=== PATIENT | male | born 1960 | race Caucasian/White ===

== ENCOUNTER 2023-08-25 13:20 | Inpatient (IN) | payer MEDICAID, OTHER, SELFPAY ==
[~2023-08-25] VITALS: Ht 182.9 cm; Wt 77.3 kg
[2023-08-25] VITALS (25 sets, daily range): BP systolic 120–160; BP diastolic 59–96; TEMP 98.5–98.6; O2SAT 89–96
[2023-08-25 14:19] LABS: BASO # 0.1 10^3/uL (0.0-0.2); BASO % 1.3 % (0.0-1.0); EOS # 0.1 10^3/uL (0.0-0.5); EOS % 1.3 % (0.0-3.0); HEMATOCRIT 50.4 % (42.0-52.0); LYMPH # 2.1 10^3/uL (1.5-5.0); LYMPH % 20.4 % (24.0-44.0); MEAN CORPUSCULAR HEMOGLOBIN 28.9 pg (27.0-33.0); MEAN CORPUSCULAR HGB CONC 34.1 g/dl (32.0-36.5); MEAN CORPUSCULAR VOLUME 84.6 fl (80.0-96.0); MONO # 0.7 10^3/uL (0.0-0.8); MONO % 6.5 % (2.0-8.0); NEUTROPHILS # 7.3 10^3/uL (1.5-8.5); NEUTROPHILS % 70.2 % (36.0-66.0); PLATELET COUNT, AUTOMATED 325 10^3/uL (150-450); WHITE BLOOD COUNT 10.3 10^3/uL (4.0-10.0)
[2023-08-25 14:22] LABS: HEMOGLOBIN 17.2 g/dl (13.5-17.5); RED BLOOD COUNT 5.96 10^6/uL (4.30-6.10)
[2023-08-25 14:24] LABS: INR 1.05; PARTIAL THROMBOPLASTIN TIME 28.6 SECONDS (24.8-34.2); PROTHROMBIN TIME 13.4 SECONDS (12.5-14.5)
[2023-08-25] MEDS ORDERED: niCARdipine IV 40 MG in IV 1 EA IV SCH (14:30)
[2023-08-25 14:37] LABS: ETHYL ALCOHOL (ETHANOL) < 0.003 % (0.000-0.010)
[2023-08-25 14:38] LABS: CPK CREATINE PHOSPHOKINASE 87 U/L (46-171)
[2023-08-25 14:39] LABS: BLOOD UREA NITROGEN 21 MG/DL (9-23); CALCIUM LEVEL 9.7 MG/DL (8.3-10.6); CARBON DIOXIDE LEVEL 24 MMOL/L (20-31); CHLORIDE LEVEL 106 MMOL/L (98-107); CK-MB VALUE MASS 1.1 NG/ML (<3.6); CREATININE FOR GFR 1.09 MG/DL (0.70-1.30); GLOMERULAR FILTRATION RATE > 60.0 (>49); GLUCOSE, FASTING 107 MG/DL (74-106); MB/CK RELATIVE INDEX 1.26 (< OR =4); POTASSIUM SERUM 3.9 MMOL/L (3.5-5.1); SODIUM LEVEL 139 MMOL/L (136-145)
[2023-08-25] MEDS ORDERED: ISOVUE-370 76% 100ML VIAL As Ordered ONE (14:43)
[2023-08-25] MEDS: ASPIRIN 81MG CHEW TABLET PO ONE (14:59)
[2023-08-25] MEDS: niCARdipine IV 40 MG in IV 1 EA IV SCH ×2 (15:00→19:00)
[2023-08-25] MEDS ORDERED: HOME MED LIST COMPLETE! XX SCH (15:20)
[2023-08-25 16:59] LABS: ALBUMIN 4.7 G/DL (3.2-5.2); ALKALINE PHOSPHATASE 125 U/L (46-116); ALT/SGPT 17 U/L (7.0-40); AST/SGOT 12 U/L (<34); BILIRUBIN,DIRECT 0.3 MG/DL (<0.4); CHOLESTEROL LEVEL 188 MG/DL (<200); HDL CHOLESTEROL 44.7 MG/DL (>40); LDL CHOLESTEROL 122.5 MG/DL (<100); NON-HDL-C 143.3 MG/DL; TOTAL PROTEIN 7.8 G/DL (5.7-8.2); TRIGLYCERIDES LEVEL 104 MG/DL (<150)
[2023-08-25] MEDS: ENOXAPARIN 40MG/0.4ML SYRINGE (J1650 PER 10MG) SC SCH (17:16)
[2023-08-25] MEDS: CLOPIDOGREL 75 MG TAB PO SCH (17:16)
[2023-08-25 17:24] LABS: HEMOGLOBIN A1c 5.4 % (4.0-6.0)
[2023-08-25] MEDS: ATORVASTATIN 20 MG TAB PO SCH (21:15)
[2023-08-25] MEDS: amLODIPine 5 MG TAB PO SCH (21:15)
[2023-08-26] VITALS (31 sets, daily range): BP systolic 113–193; BP diastolic 66–102; TEMP 97.2–98.4; O2SAT 91–96
[2023-08-26 05:29] LABS: ALBUMIN 3.9 G/DL (3.2-5.2); ALKALINE PHOSPHATASE 106 U/L (46-116); ALT/SGPT 13 U/L (7.0-40); AST/SGOT 12 U/L (<34); BILIRUBIN,TOTAL 0.9 MG/DL (0.3-1.2); BLOOD UREA NITROGEN 19 MG/DL (9-23); CALCIUM LEVEL 8.9 MG/DL (8.3-10.6); CARBON DIOXIDE LEVEL 27 MMOL/L (20-31); CHLORIDE LEVEL 107 MMOL/L (98-107); CHOLESTEROL LEVEL 166 MG/DL (<200); CHOLESTEROL RISK RATIO 4.47 (<5); CREATININE FOR GFR 0.88 MG/DL (0.70-1.30); GLOMERULAR FILTRATION RATE > 60.0 (>49); GLUCOSE, FASTING 100 MG/DL (74-106); HDL CHOLESTEROL 37.1 MG/DL (>40); LDL CHOLESTEROL 101.1 MG/DL (<100); NON-HDL-C 128.9 MG/DL; POTASSIUM SERUM 3.7 MMOL/L (3.5-5.1); SODIUM LEVEL 140 MMOL/L (136-145); TOTAL PROTEIN 6.8 G/DL (5.7-8.2); TRIGLYCERIDES LEVEL 139 MG/DL (<150)
[2023-08-26] MEDS: ASPIRIN 81MG CHEW TABLET PO SCH (08:05)
[2023-08-26] MEDS: amLODIPine 5 MG TAB PO SCH (09:25)
[2023-08-26] MEDS: **hydrALAZINE HCL** 25 MG TAB PO PRN (09:26)
[2023-08-26] MEDS ORDERED: QUEtiapine FUMARATE 12.5 MG HALF-TAB PO ONE (12:55)
[2023-08-26] MEDS: LORazepam 2 MG TAB PO PRN (13:06)
[2023-08-26] MEDS: hydrALAZINE 20MG/ML 1ML VIAL IV SCH (17:17)
[2023-08-26] MEDS: METOPROLOL SUCC *XL* 25MG TAB (TopROL *XL*) PO SCH (20:05)
[2023-08-26] MEDS: ACETAMINOPHEN TAB 650MG DOSE (2X325MG) PO PRN (20:05)
[2023-08-26 22:43] LABS: FREE T4 0.97 NG/DL (0.89-1.76); THYROID STIMULATING HORMONE 0.964 uIU/ML (0.55-4.78)
[2023-08-27] VITALS (10 sets, daily range): BP systolic 146–182; BP diastolic 62–122; TEMP 97.2–97.9; O2SAT 95–96
[2023-08-27 05:26] LABS: BASO # 0.2 10^3/uL (0.0-0.2); BASO % 1.7 % (0.0-1.0); EOS # 0.4 10^3/uL (0.0-0.5); EOS % 3.6 % (0.0-3.0); HEMATOCRIT 50.8 % (42.0-52.0); HEMOGLOBIN 16.8 g/dl (13.5-17.5); LYMPH # 2.9 10^3/uL (1.5-5.0); LYMPH % 25.5 % (24.0-44.0); MEAN CORPUSCULAR HEMOGLOBIN 28.6 pg (27.0-33.0); MEAN CORPUSCULAR HGB CONC 33.1 g/dl (32.0-36.5); MEAN CORPUSCULAR VOLUME 86.4 fl (80.0-96.0); MONO # 0.8 10^3/uL (0.0-0.8); MONO % 7.2 % (2.0-8.0); NEUTROPHILS # 7.1 10^3/uL (1.5-8.5); NEUTROPHILS % 61.7 % (36.0-66.0); PLATELET COUNT, AUTOMATED 310 10^3/uL (150-450); RED BLOOD COUNT 5.88 10^6/uL (4.30-6.10); WHITE BLOOD COUNT 11.5 10^3/uL (4.0-10.0)
[2023-08-27 05:50] LABS: BLOOD UREA NITROGEN 18 MG/DL (9-23); CALCIUM LEVEL 9.1 MG/DL (8.3-10.6); CARBON DIOXIDE LEVEL 27 MMOL/L (20-31); CHLORIDE LEVEL 109 MMOL/L (98-107); CREATININE FOR GFR 0.96 MG/DL (0.70-1.30); GLOMERULAR FILTRATION RATE > 60.0 (>49); GLUCOSE, FASTING 91 MG/DL (74-106); POTASSIUM SERUM 4.1 MMOL/L (3.5-5.1); SODIUM LEVEL 142 MMOL/L (136-145)
[2023-08-27] MEDS: METOPROLOL SUCC *XL* 25MG TAB (TopROL *XL*) PO ONE (11:29)
[2023-08-27] MEDS: hydrALAZINE 20MG/ML 1ML VIAL IV PRN (16:10)
[2023-08-27] MEDS: LORazepam 2 MG/ML 1ML VIAL IV STA (16:10)
[2023-08-27] MEDS: METOPROLOL SUCC *XL* 25MG TAB (TopROL *XL*) PO SCH (20:56)
[2023-08-27] MEDS: INDOMETHACIN 25 MG CAP PO ONE (21:29)
[2023-08-28] VITALS (11 sets, daily range): BP systolic 133–172; BP diastolic 88–102; TEMP 97.4–98.7; O2SAT 95–98
[2023-08-28 06:37] LABS: BLOOD UREA NITROGEN 19 MG/DL (9-23); CALCIUM LEVEL 9.3 MG/DL (8.3-10.6); CARBON DIOXIDE LEVEL 25 MMOL/L (20-31); CHLORIDE LEVEL 108 MMOL/L (98-107); CREATININE FOR GFR 0.87 MG/DL (0.70-1.30); GLOMERULAR FILTRATION RATE > 60.0 (>49); GLUCOSE, FASTING 81 MG/DL (74-106); POTASSIUM SERUM 4.1 MMOL/L (3.5-5.1); SODIUM LEVEL 142 MMOL/L (136-145)
[2023-08-28 06:45] LABS: BASO # 0.1 10^3/uL (0.0-0.2); BASO % 1.5 % (0.0-1.0); EOS # 0.4 10^3/uL (0.0-0.5); EOS % 4.6 % (0.0-3.0); HEMATOCRIT 51.2 % (42.0-52.0); LYMPH # 2.2 10^3/uL (1.5-5.0); LYMPH % 22.8 % (24.0-44.0); MEAN CORPUSCULAR HEMOGLOBIN 28.5 pg (27.0-33.0); MEAN CORPUSCULAR HGB CONC 33.4 g/dl (32.0-36.5); MEAN CORPUSCULAR VOLUME 85.5 fl (80.0-96.0); MONO # 0.8 10^3/uL (0.0-0.8); NEUTROPHILS # 6.1 10^3/uL (1.5-8.5); NEUTROPHILS % 62.8 % (36.0-66.0); PLATELET COUNT, AUTOMATED 303 10^3/uL (150-450); RED BLOOD COUNT 5.99 10^6/uL (4.30-6.10); WHITE BLOOD COUNT 9.6 10^3/uL (4.0-10.0)
[2023-08-28 06:46] LABS: HEMOGLOBIN 17.1 g/dl (13.5-17.5)
[2023-08-29] VITALS (7 sets, daily range): BP systolic 128–220; BP diastolic 78–120; TEMP 97.4–97.9; O2SAT 93–96
[2023-08-29] MEDS: METOPROLOL SUCC (TopROL XL) 50MG **XL** TAB PO SCH (09:06)
[2023-08-29] MEDS: ACETAMINOPHEN TAB 650MG DOSE (2X325MG) PO PRN (14:29)
[2023-08-29] MEDS: LOSARTAN 50MG TABLET PO SCH (17:00)
[2023-08-29] MEDS ORDERED: hydrALAZINE 20MG/ML 1ML VIAL IV PRN (17:05)
[2023-08-30] VITALS (9 sets, daily range): BP systolic 124–146; BP diastolic 77–85; TEMP 97–98.2; O2SAT 93–99
[2023-08-30] MEDS: METOPROLOL SUCC *XL* 25MG TAB (TopROL *XL*) PO SCH (08:26)
[2023-08-30 13:48] LABS: CLOSTRIDIUM DIFFICILE PCR NEGATIVE (NEGATIVE)
[2023-08-31] VITALS (10 sets, daily range): BP systolic 131–176; BP diastolic 77–98; TEMP 97.7–98.6; O2SAT 94–99
[2023-09-01] VITALS (9 sets, daily range): BP systolic 124–176; BP diastolic 76–98; TEMP 98.1–98.8; O2SAT 94–97
[2023-09-01] MEDS: diphenhydrAMINE 50MG/ML VIAL IM ONE
[2023-09-01] MEDS: **hydrALAZINE** 10 MG TAB PO ONE (00:01)
[2023-09-01 00:42] LABS: ALBUMIN 4.4 G/DL (3.2-5.2); ALKALINE PHOSPHATASE 127 U/L (46-116); ALT/SGPT 36 U/L (7.0-40); AST/SGOT 25 U/L (<34); BILIRUBIN,TOTAL 0.9 MG/DL (0.3-1.2); BLOOD UREA NITROGEN 19 MG/DL (9-23); CALCIUM LEVEL 9.3 MG/DL (8.3-10.6); CARBON DIOXIDE LEVEL 24 MMOL/L (20-31); CHLORIDE LEVEL 109 MMOL/L (98-107); GLOMERULAR FILTRATION RATE > 60.0 (>49); GLUCOSE, FASTING 109 MG/DL (74-106); POTASSIUM SERUM 3.8 MMOL/L (3.5-5.1); SODIUM LEVEL 141 MMOL/L (136-145); TOTAL PROTEIN 7.1 G/DL (5.7-8.2)
[2023-09-02] VITALS (11 sets, daily range): BP systolic 114–150; BP diastolic 68–98; TEMP 97.2–99; O2SAT 91–98
[2023-09-02 08:00] LABS: HEMATOCRIT 49.3 % (42.0-52.0); HEMOGLOBIN 16.5 g/dl (13.5-17.5); MEAN CORPUSCULAR HEMOGLOBIN 28.4 pg (27.0-33.0); MEAN CORPUSCULAR HGB CONC 33.5 g/dl (32.0-36.5); PLATELET COUNT, AUTOMATED 320 10^3/uL (150-450); WHITE BLOOD COUNT 14.3 10^3/uL (4.0-10.0)
[2023-09-02] MEDS: SERTRALINE HCL 50 MG TAB PO SCH (12:32)
[2023-09-03] VITALS (10 sets, daily range): BP systolic 129–150; BP diastolic 79–90; TEMP 97.3–98.4; O2SAT 93–95
[2023-09-03 08:58] LABS: HEMATOCRIT 47.3 % (42.0-52.0); HEMOGLOBIN 15.6 g/dl (13.5-17.5); MEAN CORPUSCULAR HEMOGLOBIN 28.4 pg (27.0-33.0); PLATELET COUNT, AUTOMATED 338 10^3/uL (150-450)
[2023-09-03 09:16] LABS: BLOOD UREA NITROGEN 22 MG/DL (9-23); CARBON DIOXIDE LEVEL 27 MMOL/L (20-31); CHLORIDE LEVEL 107 MMOL/L (98-107); CREATININE FOR GFR 0.99 MG/DL (0.70-1.30); GLOMERULAR FILTRATION RATE > 60.0 (>49); GLUCOSE, FASTING 92 MG/DL (74-106); POTASSIUM SERUM 3.8 MMOL/L (3.5-5.1); SODIUM LEVEL 142 MMOL/L (136-145)
[2023-09-04] VITALS (10 sets, daily range): BP systolic 131–161; BP diastolic 80–94; TEMP 97–98.2; O2SAT 93–100
[2023-09-04 07:24] LABS: HEMATOCRIT 48.6 % (42.0-52.0); HEMOGLOBIN 16.1 g/dl (13.5-17.5); MEAN CORPUSCULAR HEMOGLOBIN 28.5 pg (27.0-33.0); MEAN CORPUSCULAR HGB CONC 33.1 g/dl (32.0-36.5); MEAN CORPUSCULAR VOLUME 86.2 fl (80.0-96.0); PLATELET COUNT, AUTOMATED 341 10^3/uL (150-450); RED BLOOD COUNT 5.64 10^6/uL (4.30-6.10); WHITE BLOOD COUNT 10.6 10^3/uL (4.0-10.0)
[2023-09-04 08:03] LABS: BLOOD UREA NITROGEN 22 MG/DL (9-23); CALCIUM LEVEL 9.4 MG/DL (8.3-10.6); CARBON DIOXIDE LEVEL 28 MMOL/L (20-31); CHLORIDE LEVEL 106 MMOL/L (98-107); CREATININE FOR GFR 0.95 MG/DL (0.70-1.30); GLOMERULAR FILTRATION RATE > 60.0 (>49); GLUCOSE, FASTING 95 MG/DL (74-106); POTASSIUM SERUM 3.8 MMOL/L (3.5-5.1); SODIUM LEVEL 140 MMOL/L (136-145)
[2023-09-05] VITALS (8 sets, daily range): BP systolic 123–144; BP diastolic 70–91; TEMP 97.3–98.1; O2SAT 93–97
[2023-09-05 18:04] LABS: APPEARANCE, URINE MANUAL CLEAR (CLEAR); COLOR, URINE MANUAL YELLOW (YELLOW)
[2023-09-05 18:05] LABS: BILIRUBIN, URINE MANUAL NEGATIVE (NEGATIVE); BLOOD URINE MANUAL NEGATIVE (NEGATIVE); GLUCOSE, URINE (UA) MANUAL NEGATIVE (NEGATIVE); KETONE, URINE MANUAL 1+ mg/dL (NEGATIVE); LEUKOCYTE ESTERASE, URINE MAN NEGATIVE (NEGATIVE); NITRITE, URINE MANUAL NEGATIVE (NEGATIVE); PROTEIN, URINE MANUAL NEGATIVE (NEGATIVE); SPECIFIC GRAVITY,URINE MANUAL 1.025 (1.002-1.035); UROBILINOGEN, URINE MANUAL NORMAL (NORMAL)
[2023-09-05] MEDS: oxyBUTYnin 5 MG TAB PO SCH (18:13)
[2023-09-06] VITALS (7 sets, daily range): BP systolic 126–133; BP diastolic 67–84; TEMP 97.7–99; O2SAT 91–98
[2023-09-07 08:00] VITALS: BP_SYST 125; BP_SYST 130; BP_DIAS 69; BP_DIAS 85; TEMP 97.7; O2SAT 95; O2SAT 98
[2023-09-07] MEDS ORDERED: oxyBUTYnin 5 MG TAB As Ordered ONE (09:26)
[2023-09-07] MEDS ORDERED: METOPROLOL SUCC *XL* 25MG TAB (TopROL *XL*) As Ordered ONE (09:27)
[2023-09-07] MEDS ORDERED: ASPIRIN 81MG CHEW TABLET As Ordered ONE (09:27)
[2023-09-07] MEDS ORDERED: SERTRALINE HCL 50 MG TAB As Ordered ONE (09:27)
[2023-09-07] MEDS ORDERED: ENOXAPARIN 40MG/0.4ML SYRINGE (J1650 PER 10MG) As Ordered ONE (09:28)
[2023-09-07] MEDS ORDERED: CLOPIDOGREL 75 MG TAB As Ordered ONE (09:28)
[2023-09-07 12:00] VITALS: BP 132/82; TEMP 97.9; O2SAT 96
[2023-09-07 12:58] LABS: ALBUMIN 3.6 G/DL (3.2-5.2); ALKALINE PHOSPHATASE 133 U/L (46-116); ALT/SGPT 22 U/L (7.0-40); AST/SGOT 11 U/L (<34); BILIRUBIN,TOTAL 0.6 MG/DL (0.3-1.2); BLOOD UREA NITROGEN 17 MG/DL (9-23); CALCIUM LEVEL 9.5 MG/DL (8.3-10.6); CARBON DIOXIDE LEVEL 32 MMOL/L (20-31); CHLORIDE LEVEL 107 MMOL/L (98-107); CREATININE FOR GFR 0.92 MG/DL (0.70-1.30); GLOMERULAR FILTRATION RATE > 60.0 (>49); GLUCOSE, FASTING 94 MG/DL (74-106); PHOSPHORUS LEVEL 3.4 MG/DL (2.4-5.1); POTASSIUM SERUM 4.1 MMOL/L (3.5-5.1); SODIUM LEVEL 142 MMOL/L (136-145); TOTAL PROTEIN 6.5 G/DL (5.7-8.2)
[2023-09-07 16:30] VITALS: BP 131/82; TEMP 98.4; O2SAT 93
[2023-09-07 16:49] LABS: BASO # 0.2 10^3/uL (0.0-0.2); BASO % 1.7 % (0.0-1.0); EOS # 0.4 10^3/uL (0.0-0.5); EOS % 4.2 % (0.0-3.0); HEMATOCRIT 47.5 % (42.0-52.0); HEMOGLOBIN 15.8 g/dl (13.5-17.5); LYMPH % 19.2 % (24.0-44.0); MEAN CORPUSCULAR HEMOGLOBIN 28.4 pg (27.0-33.0); MEAN CORPUSCULAR HGB CONC 33.3 g/dl (32.0-36.5); MEAN CORPUSCULAR VOLUME 85.3 fl (80.0-96.0); MONO # 0.8 10^3/uL (0.0-0.8); MONO % 7.8 % (2.0-8.0); NEUTROPHILS # 6.9 10^3/uL (1.5-8.5); NEUTROPHILS % 66.8 % (36.0-66.0); PLATELET COUNT, AUTOMATED 373 10^3/uL (150-450); RED BLOOD COUNT 5.57 10^6/uL (4.30-6.10); WHITE BLOOD COUNT 10.3 10^3/uL (4.0-10.0)
[2023-09-07 20:00] VITALS: BP 125/79; TEMP 97.9; O2SAT 92
[2023-09-07 23:26] VITALS: BP 126/67; TEMP 97.9; O2SAT 98
[2023-09-08] VITALS (8 sets, daily range): BP systolic 126–151; BP diastolic 67–92; TEMP 97.9–98.1; O2SAT 90–98
[2023-09-08 05:50] LABS: BASO # 0.2 10^3/uL (0.0-0.2); BASO % 1.7 % (0.0-1.0); EOS # 0.4 10^3/uL (0.0-0.5); HEMATOCRIT 47.7 % (42.0-52.0); LYMPH # 2.1 10^3/uL (1.5-5.0); LYMPH % 19.5 % (24.0-44.0); MEAN CORPUSCULAR HEMOGLOBIN 28.6 pg (27.0-33.0); MEAN CORPUSCULAR HGB CONC 33.5 g/dl (32.0-36.5); MEAN CORPUSCULAR VOLUME 85.3 fl (80.0-96.0); MONO # 0.9 10^3/uL (0.0-0.8); MONO % 7.8 % (2.0-8.0); NEUTROPHILS # 7.3 10^3/uL (1.5-8.5); NEUTROPHILS % 66.7 % (36.0-66.0); PLATELET COUNT, AUTOMATED 355 10^3/uL (150-450); RED BLOOD COUNT 5.59 10^6/uL (4.30-6.10)
[2023-09-09] VITALS (7 sets, daily range): BP systolic 143–154; BP diastolic 78–95; TEMP 97–98.1; O2SAT 92–99
[2023-09-10 04:01] VITALS: BP 144/84; TEMP 97.9; O2SAT 96
[2023-09-10 08:00] VITALS: BP 162/91; TEMP 97.9; O2SAT 94
[2023-09-10 12:00] VITALS: BP 110/85; TEMP 98.1; O2SAT 95
[2023-09-10 12:57] VITALS: BP 122/85; TEMP 97.7; O2SAT 96
[2023-09-10] MEDS: LOSARTAN 50MG TABLET PO SCH (16:04)
[2023-09-10 19:35] VITALS: BP 122/79; TEMP 97.7; O2SAT 95
[2023-09-10 20:00] VITALS: BP 122/79; TEMP 97.7; O2SAT 95
[2023-09-11] VITALS (8 sets, daily range): BP systolic 127–145; BP diastolic 77–86; TEMP 97.9–98.4; O2SAT 94–95
[2023-09-11 06:34] LABS: BASO # 0.2 10^3/uL (0.0-0.2); BASO % 1.7 % (0.0-1.0); EOS # 0.4 10^3/uL (0.0-0.5); EOS % 3.7 % (0.0-3.0); HEMATOCRIT 46.2 % (42.0-52.0); HEMOGLOBIN 15.4 g/dl (13.5-17.5); LYMPH # 1.8 10^3/uL (1.5-5.0); MEAN CORPUSCULAR HEMOGLOBIN 28.2 pg (27.0-33.0); MEAN CORPUSCULAR HGB CONC 33.3 g/dl (32.0-36.5); MEAN CORPUSCULAR VOLUME 84.6 fl (80.0-96.0); MONO # 0.9 10^3/uL (0.0-0.8); MONO % 8.5 % (2.0-8.0); NEUTROPHILS # 7.4 10^3/uL (1.5-8.5); NEUTROPHILS % 68.9 % (36.0-66.0); PLATELET COUNT, AUTOMATED 358 10^3/uL (150-450); RED BLOOD COUNT 5.46 10^6/uL (4.30-6.10); WHITE BLOOD COUNT 10.7 10^3/uL (4.0-10.0)
[2023-09-11 07:05] LABS: BLOOD UREA NITROGEN 15 MG/DL (9-23); CALCIUM LEVEL 9.4 MG/DL (8.3-10.6); CARBON DIOXIDE LEVEL 29 MMOL/L (20-31); CHLORIDE LEVEL 106 MMOL/L (98-107); CREATININE FOR GFR 0.81 MG/DL (0.70-1.30); GLOMERULAR FILTRATION RATE > 60.0 (>49); GLUCOSE, FASTING 91 MG/DL (74-106); POTASSIUM SERUM 3.4 MMOL/L (3.5-5.1); SODIUM LEVEL 141 MMOL/L (136-145)
[2023-09-11 09:13] LABS: BLOOD UREA NITROGEN 15 MG/DL (9-23); CALCIUM LEVEL 9.1 MG/DL (8.3-10.6); CARBON DIOXIDE LEVEL 30 MMOL/L (20-31); CHLORIDE LEVEL 104 MMOL/L (98-107); CREATININE FOR GFR 0.81 MG/DL (0.70-1.30); GLOMERULAR FILTRATION RATE > 60.0 (>49); GLUCOSE, FASTING 92 MG/DL (74-106); POTASSIUM SERUM 3.4 MMOL/L (3.5-5.1); SODIUM LEVEL 140 MMOL/L (136-145)
[2023-09-11] MEDS: POTASSIUM CHLORIDE 10MEQ SR TABLET PO ONE (09:38)
[2023-09-12 04:00] VITALS: BP 143/98; TEMP 98.4; O2SAT 94
[2023-09-12] MEDS ORDERED: POTASSIUM CHLORIDE 10MEQ SR TABLET PO SCH (09:00)
[2023-09-12 09:09] LABS: BLOOD UREA NITROGEN 16 MG/DL (9-23); CALCIUM LEVEL 8.8 MG/DL (8.3-10.6); CARBON DIOXIDE LEVEL 27 MMOL/L (20-31); CHLORIDE LEVEL 106 MMOL/L (98-107); CREATININE FOR GFR 0.84 MG/DL (0.70-1.30); GLOMERULAR FILTRATION RATE > 60.0 (>49); GLUCOSE, FASTING 99 MG/DL (74-106); MAGNESIUM LEVEL 1.8 MG/DL (1.8-2.4); POTASSIUM SERUM 3.8 MMOL/L (3.5-5.1); SODIUM LEVEL 140 MMOL/L (136-145)
[2023-09-12 12:00] VITALS: BP 127/86; TEMP 98.6; O2SAT 95
[2023-09-12 20:28] VITALS: BP 147/96; TEMP 98.1; O2SAT 98
[2023-09-12 20:30] VITALS: BP 147/96; TEMP 98.1; O2SAT 98
[2023-09-13 04:18] VITALS: BP 141/94; TEMP 98.4; O2SAT 94
[2023-09-13 08:00] VITALS: BP 122/75
[2023-09-13 08:26] VITALS: BP 121/74; TEMP 98.4; O2SAT 97
[2023-09-13 12:45] VITALS: BP 159/83; TEMP 98.6; O2SAT 97
[2023-09-13 19:44] VITALS: BP 128/86; TEMP 98.4; O2SAT 94
[2023-09-13 20:10] VITALS: BP 128/86; TEMP 98.4; O2SAT 94
[2023-09-13] MEDS: CALCIUM CARBONATE 500 MG CHEW U/D PO ONE (20:42)
[2023-09-14 04:32] VITALS: BP 131/86; TEMP 98.1; O2SAT 96
[2023-09-14 05:49] VITALS: BP 131/86; TEMP 98.1; O2SAT 96
[2023-09-14 10:00] VITALS: BP 131/72; TEMP 97.9; O2SAT 96
[2023-09-14 13:00] VITALS: BP 124/81; TEMP 98.4; O2SAT 96
[2023-09-14 14:00] VITALS: BP 126/68; TEMP 98.1; O2SAT 96
[2023-09-14 20:19] VITALS: BP 128/84; TEMP 98.1; O2SAT 94
[2023-09-15 04:17] VITALS: BP 133/84; TEMP 97.9; O2SAT 97
[2023-09-15 10:00] VITALS: BP 129/85; TEMP 98.2; O2SAT 97
[2023-09-15 12:00] VITALS: BP 129/85; TEMP 98.2; O2SAT 97
[2023-09-15 19:41] VITALS: BP 134/80; TEMP 97.7; O2SAT 94
[2023-09-16 04:23] VITALS: BP 132/82; TEMP 97.9; O2SAT 97
[2023-09-16 12:00] VITALS: BP 148/84; TEMP 98; O2SAT 97
[2023-09-16 19:33] VITALS: BP 129/83; TEMP 97.9; O2SAT 95
[2023-09-17 04:13] VITALS: BP 128/90; TEMP 97.9; O2SAT 98
[2023-09-17 06:18] LABS: BASO # 0.1 10^3/uL (0.0-0.2); BASO % 1.5 % (0.0-1.0); EOS # 0.4 10^3/uL (0.0-0.5); EOS % 3.8 % (0.0-3.0); HEMOGLOBIN 15.5 g/dl (13.5-17.5); LYMPH # 1.5 10^3/uL (1.5-5.0); MEAN CORPUSCULAR HEMOGLOBIN 28.3 pg (27.0-33.0); MEAN CORPUSCULAR VOLUME 85.9 fl (80.0-96.0); MONO # 0.8 10^3/uL (0.0-0.8); MONO % 8.8 % (2.0-8.0); NEUTROPHILS # 6.4 10^3/uL (1.5-8.5); NEUTROPHILS % 69.7 % (36.0-66.0); PLATELET COUNT, AUTOMATED 353 10^3/uL (150-450); RED BLOOD COUNT 5.47 10^6/uL (4.30-6.10); WHITE BLOOD COUNT 9.2 10^3/uL (4.0-10.0)
[2023-09-17 06:40] LABS: BLOOD UREA NITROGEN 12 MG/DL (9-23); CALCIUM LEVEL 9.3 MG/DL (8.3-10.6); CARBON DIOXIDE LEVEL 29 MMOL/L (20-31); CHLORIDE LEVEL 107 MMOL/L (98-107); CREATININE FOR GFR 0.76 MG/DL (0.70-1.30); GLOMERULAR FILTRATION RATE > 60.0 (>49); GLUCOSE, FASTING 103 MG/DL (74-106); POTASSIUM SERUM 3.5 MMOL/L (3.5-5.1); SODIUM LEVEL 141 MMOL/L (136-145)
[2023-09-17 12:00] VITALS: BP 131/85; TEMP 97.7; O2SAT 99
[2023-09-17 20:00] VITALS: BP 151/95; TEMP 97.9; O2SAT 97
[2023-09-17] MEDS: TAMSULOSIN 0.4 MG CAP PO SCH (20:13)
[2023-09-18 04:00] VITALS: BP 144/96; TEMP 97.3; O2SAT 98
[2023-09-18 08:33] LABS: APPEARANCE, URINE CLEAR (CLEAR); BACTERIA, URINE AUTO NEGATIVE (NEGATIVE); BILIRUBIN, URINE AUTO NEGATIVE (NEGATIVE); BLOOD, URINE BLOOD 1+ (NEGATIVE); COLOR, URINE AMBER (YELLOW); GLUCOSE, URINE (UA) AUTO NEGATIVE (NEGATIVE); KETONE, URINE AUTO NEGATIVE (NEGATIVE); LEUKOCYTE ESTERASE, URINE AUTO NEGATIVE (NEGATIVE); MUCUS, URINE SMALL (NEGATIVE); NITRITE, URINE AUTO NEGATIVE (NEGATIVE); PROTEIN, URINE AUTO NEGATIVE (NEGATIVE); RBC, URINE AUTO 12 /HPF (0-3); SQUAMOUS EPITHELIAL CELL UR AU 0 /HPF (0-6); WBC, URINE AUTO 2 /HPF (0-3)
[2023-09-18 12:00] VITALS: BP 140/91; TEMP 97.9; O2SAT 94
[2023-09-18 20:00] VITALS: BP 108/72; TEMP 97.7; O2SAT 96
[2023-09-19 04:00] VITALS: BP 109/74; TEMP 97.7; O2SAT 96
[2023-09-19] MEDS ORDERED: FLOM0.4C39 PO (06:37)
[2023-09-19] MEDS ORDERED: ASPI81CH8 PO (06:37)
[2023-09-19] MEDS ORDERED: AMLO1TAB25 PO (06:37)
[2023-09-19] MEDS ORDERED: CLOP75TA2 PO (06:37)
[2023-09-19] MEDS ORDERED: LOSA-528 PO (06:37)
[2023-09-19] MEDS ORDERED: ATOR1TAB21 PO (06:37)
[2023-09-19] MEDS ORDERED: OXYB5TAB14 PO (06:37)
[2023-09-19] MEDS ORDERED: SERT50TA29 PO (06:37)
[2023-09-19] MEDS ORDERED: HOME MED LIST COMPLETE! XX SCH (07:35)
[2023-09-19 08:54] VITALS: BP 114/77
[2023-09-19 08:56] VITALS: BP 114/77
[2023-09-19 12:00] VITALS: BP 121/81; TEMP 97.7; O2SAT 98
== END 2023-09-19 14:40 | DRG 45 ==
LOC: M ED 13:20 → M ED INP 16:06 → M ICU 16:40 → M PCU 08-26 14:45 → M MS5PR 08-30 14:27
PROVIDERS: ADMIT Internal Medicine Pulmonary Disease; ATTEND Student in an Organized Health Care Education/Training Program
PROC: B246ZZZ Ultrasonography of Right and Left Heart (ICD-10-PCS; principal; 2023-08-27)
DX: I63.531 Cerebral infarction due to unspecified occlusion or stenosis of right posterior cerebral artery (principal); I67.4 Hypertensive encephalopathy; G81.92 Hemiplegia, unspecified affecting left dominant side; I16.1 Hypertensive emergency; F17.210 Nicotine dependence, cigarettes, uncomplicated; R26.89 Other abnormalities of gait and mobility; E78.5 Hyperlipidemia, unspecified; I10 Essential (primary) hypertension; F32.A Depression, unspecified; R29.810 Facial weakness; N40.1 Benign prostatic hyperplasia with lower urinary tract symptoms; R33.9 Retention of urine, unspecified

== ENCOUNTER 2023-11-06 14:17 | Inpatient (IN) | payer MEDICAID ==
[~2023-11-06] VITALS: Ht 175.3 cm; Wt 77.3 kg
[~2023-11-06 14:17] MED LIST: AMLO1TAB25 PO; ASPI81CH8 PO; ATOR1TAB21 PO; CLOP75TA2 PO; FLOM0.4C39 PO; LOSA-528 PO; OXYB5TAB14 PO; SERT50TA29 PO
[2023-11-06] MEDS ORDERED: ATOR80TA59 PO (16:46)
[2023-11-06] MEDS ORDERED: LOSA50TA28 PO (16:46)
[2023-11-06] MEDS ORDERED: SERT50TA29 PO (16:46)
[2023-11-06] MEDS ORDERED: OXYB15TA14 PO (16:46)
[2023-11-06] MEDS ORDERED: CLOP75TA99 PO (16:46)
[2023-11-06] MEDS ORDERED: FLOM0.4C39 PO (16:46)
[2023-11-06] MEDS ORDERED: ASPI81CH33 PO (16:46)
[2023-11-06] MEDS ORDERED: AMLO1TAB25 PO (16:46)
[2023-11-06] MEDS ORDERED: ACET-907 PO (16:46)
[2023-11-06] MEDS ORDERED: HOME MED LIST COMPLETE! XX SCH (16:50)
[2023-11-06 16:58] LABS: BASO % 0.1 % (0.0-1.0); HEMATOCRIT 40.5 % (42.0-52.0); HEMOGLOBIN 13.7 g/dl (13.5-17.5); LYMPH # 0.8 10^3/uL (1.5-5.0); MEAN CORPUSCULAR HGB CONC 33.8 g/dl (32.0-36.5); MEAN CORPUSCULAR VOLUME 85.6 fl (80.0-96.0); MONO # 0.4 10^3/uL (0.0-0.8); MONO % 2.2 % (2.0-8.0); NEUTROPHILS # 14.6 10^3/uL (1.5-8.5); NEUTROPHILS % 92.4 % (36.0-66.0); PLATELET COUNT, AUTOMATED 325 10^3/uL (150-450); RED BLOOD COUNT 4.73 10^6/uL (4.30-6.10); WHITE BLOOD COUNT 15.9 10^3/uL (4.0-10.0)
[2023-11-06] MEDS ORDERED: ISOVUE-370 76% 100ML VIAL As Ordered ONE (17:19)
[2023-11-06 17:29] LABS: LIPASE 25 U/L (12-53)
[2023-11-06 17:31] LABS: ALKALINE PHOSPHATASE 147 U/L (46-116); ALT/SGPT 17 U/L (7.0-40); AST/SGOT < 8 U/L (<34); BILIRUBIN,DIRECT 0.2 MG/DL (<0.4); BILIRUBIN,TOTAL 0.6 MG/DL (0.3-1.2); TOTAL PROTEIN 7.4 G/DL (5.7-8.2)
[2023-11-06 19:49] LABS: HEMATOCRIT 40.7 % (42.0-52.0); HEMOGLOBIN 13.7 g/dl (13.5-17.5)
[2023-11-06] MEDS ORDERED: ONDANSETRON 4MG 2ML VIAL IV PRN (23:10)
[2023-11-07] MEDS: NS 1,000 ML IV SCH (00:20)
[2023-11-07 01:55] LABS: BLOOD UREA NITROGEN 25 MG/DL (9-23); CALCIUM LEVEL 8.9 MG/DL (8.3-10.6); CARBON DIOXIDE LEVEL 29 MMOL/L (20-31); CHLORIDE LEVEL 104 MMOL/L (98-107); CREATININE FOR GFR 0.78 MG/DL (0.70-1.30); GLOMERULAR FILTRATION RATE > 60.0 (>49); GLUCOSE, FASTING 115 MG/DL (74-106); POTASSIUM SERUM 3.8 MMOL/L (3.5-5.1); SODIUM LEVEL 137 MMOL/L (136-145)
[2023-11-07 06:40] LABS: HEMATOCRIT 37.5 % (42.0-52.0); HEMOGLOBIN 12.7 g/dl (13.5-17.5); MEAN CORPUSCULAR HGB CONC 33.9 g/dl (32.0-36.5); MEAN CORPUSCULAR VOLUME 85.6 fl (80.0-96.0); PLATELET COUNT, AUTOMATED 344 10^3/uL (150-450); RED BLOOD COUNT 4.38 10^6/uL (4.30-6.10); WHITE BLOOD COUNT 16.3 10^3/uL (4.0-10.0)
[2023-11-07 07:20] LABS: ALBUMIN 3.7 G/DL (3.2-5.2); ALKALINE PHOSPHATASE 127 U/L (46-116); ALT/SGPT 14 U/L (7.0-40); AST/SGOT < 8 U/L (<34); BILIRUBIN,TOTAL 0.5 MG/DL (0.3-1.2); BLOOD UREA NITROGEN 26 MG/DL (9-23); CALCIUM LEVEL 9.1 MG/DL (8.3-10.6); CARBON DIOXIDE LEVEL 29 MMOL/L (20-31); CHLORIDE LEVEL 106 MMOL/L (98-107); CREATININE FOR GFR 0.73 MG/DL (0.70-1.30); GLOMERULAR FILTRATION RATE > 60.0 (>49); GLUCOSE, FASTING 118 MG/DL (74-106); POTASSIUM SERUM 3.6 MMOL/L (3.5-5.1); SODIUM LEVEL 138 MMOL/L (136-145); TOTAL PROTEIN 6.8 G/DL (5.7-8.2)
[2023-11-07] MEDS: MAGNESIUM CITRATE 300ML BTL PO ONE (09:03)
[2023-11-07] MEDS: ASPIRIN 81MG CHEW TABLET PO SCH (09:03)
[2023-11-07] MEDS: PIPERACILLIN/TAZOBACTAM SOD 3.375 GM in D5W MINI-BAG PLUS 50 ML IV SCH (09:06)
[2023-11-07 09:22] LABS: C REACTIVE PROTEIN QUANTITATIV < 0.40 MG/DL (<1.0)
[2023-11-07 09:37] LABS: ERYTHROCYTE SEDIMENTATION RATE 15 mm/hr (0-20)
[2023-11-07 09:59] LABS: CA19-9 TUMOR MARKER,CARBOHYDRA 21.5 U/ML (<35.0)
[2023-11-07] MEDS: LR 1,000 ML IV SCH (10:23)
[2023-11-07 10:30] VITALS: BP 126/94; TEMP 98.1; O2SAT 97
[2023-11-07 12:00] VITALS: BP 122/78; TEMP 97.1; O2SAT 99
[2023-11-07 12:00] LABS: PROCALCITONIN 0.04 ng/ml
[2023-11-07 16:00] VITALS: BP 123/76; TEMP 97.5; O2SAT 98
[2023-11-07 20:57] VITALS: BP 118/74; TEMP 98.1; O2SAT 98
[2023-11-07] MEDS: CALCIUM CARBONATE 500 MG CHEW U/D PO PRN (22:17)
[2023-11-07 23:14] VITALS: BP 108/64; TEMP 97.7; O2SAT 97
[2023-11-08 04:00] VITALS: BP 123/76; TEMP 97.7; O2SAT 96
[2023-11-08 06:18] LABS: BASO # 0.1 10^3/uL (0.0-0.2); BASO % 1.2 % (0.0-1.0); EOS # 0.3 10^3/uL (0.0-0.5); EOS % 2.7 % (0.0-3.0); HEMATOCRIT 36.3 % (42.0-52.0); HEMOGLOBIN 11.9 g/dl (13.5-17.5); LYMPH % 17.9 % (24.0-44.0); MEAN CORPUSCULAR HEMOGLOBIN 28.3 pg (27.0-33.0); MEAN CORPUSCULAR HGB CONC 32.8 g/dl (32.0-36.5); MEAN CORPUSCULAR VOLUME 86.4 fl (80.0-96.0); MONO # 0.8 10^3/uL (0.0-0.8); MONO % 7.3 % (2.0-8.0); NEUTROPHILS % 70.5 % (36.0-66.0); PLATELET COUNT, AUTOMATED 335 10^3/uL (150-450); WHITE BLOOD COUNT 11.3 10^3/uL (4.0-10.0)
[2023-11-08 07:01] LABS: BLOOD UREA NITROGEN 19 MG/DL (9-23); CALCIUM LEVEL 8.6 MG/DL (8.3-10.6); CARBON DIOXIDE LEVEL 30 MMOL/L (20-31); CHLORIDE LEVEL 105 MMOL/L (98-107); CREATININE FOR GFR 0.87 MG/DL (0.70-1.30); GLOMERULAR FILTRATION RATE > 60.0 (>49); GLUCOSE, FASTING 92 MG/DL (74-106); POTASSIUM SERUM 3.6 MMOL/L (3.5-5.1); SODIUM LEVEL 138 MMOL/L (136-145)
[2023-11-08] MEDS ORDERED: MAGNESIUM CITRATE 300ML BTL PO ONE (07:10)
[2023-11-08] MEDS: FLEET ENEMA PR ONE (07:38)
[2023-11-08 08:00] VITALS: BP 122/73; TEMP 97.9; O2SAT 96
[2023-11-08] MEDS ORDERED: LIDOCAINE 2% 100MG/5ML SDV (FOR ANES.) As Ordered ONE (11:19)
[2023-11-08] MEDS ORDERED: propofoL 200 MG/20 ML VIAL As Ordered ONE (11:19)
[2023-11-08 12:35] LABS: HEMATOCRIT 35.3 % (42.0-52.0); HEMOGLOBIN 11.6 g/dl (13.5-17.5)
[2023-11-08 12:36] VITALS: BP 121/73; TEMP 97.5; O2SAT 97
[2023-11-08 18:33] LABS: HEMATOCRIT 35.6 % (42.0-52.0); HEMOGLOBIN 11.7 g/dl (13.5-17.5)
[2023-11-08 19:36] VITALS: BP 133/81; TEMP 97.9; O2SAT 94
[2023-11-09 00:30] LABS: HEMATOCRIT 32.9 % (42.0-52.0); HEMOGLOBIN 11.1 g/dl (13.5-17.5)
[2023-11-09 04:00] VITALS: BP 138/98; TEMP 97.7; O2SAT 92
[2023-11-09 06:29] LABS: BASO # 0.1 10^3/uL (0.0-0.2); BASO % 1.3 % (0.0-1.0); EOS # 0.4 10^3/uL (0.0-0.5); EOS % 3.9 % (0.0-3.0); HEMATOCRIT 34.8 % (42.0-52.0); HEMOGLOBIN 11.5 g/dl (13.5-17.5); LYMPH # 1.8 10^3/uL (1.5-5.0); LYMPH % 16.8 % (24.0-44.0); MEAN CORPUSCULAR HEMOGLOBIN 28.9 pg (27.0-33.0); MEAN CORPUSCULAR VOLUME 87.4 fl (80.0-96.0); MONO # 0.9 10^3/uL (0.0-0.8); MONO % 8.6 % (2.0-8.0); NEUTROPHILS # 7.4 10^3/uL (1.5-8.5); PLATELET COUNT, AUTOMATED 299 10^3/uL (150-450); RED BLOOD COUNT 3.98 10^6/uL (4.30-6.10); WHITE BLOOD COUNT 10.8 10^3/uL (4.0-10.0)
[2023-11-09 06:47] LABS: BLOOD UREA NITROGEN 13 MG/DL (9-23); CALCIUM LEVEL 8.6 MG/DL (8.3-10.6); CARBON DIOXIDE LEVEL 30 MMOL/L (20-31); CHLORIDE LEVEL 106 MMOL/L (98-107); GLOMERULAR FILTRATION RATE > 60.0 (>49); GLUCOSE, FASTING 94 MG/DL (74-106); POTASSIUM SERUM 3.6 MMOL/L (3.5-5.1); SODIUM LEVEL 140 MMOL/L (136-145)
[2023-11-09 08:14] LABS: C REACTIVE PROTEIN QUANTITATIV < 0.40 MG/DL (<1.0)
[2023-11-09 08:27] LABS: PROCALCITONIN 0.04 ng/ml
[2023-11-09 12:46] VITALS: BP 139/84; TEMP 97.9; O2SAT 95
[2023-11-09 19:27] VITALS: BP 142/83; TEMP 97.7; O2SAT 95
[2023-11-10 04:00] VITALS: BP 155/85; TEMP 97.3; O2SAT 96
[2023-11-10 06:31] LABS: BASO # 0.1 10^3/uL (0.0-0.2); BASO % 1.1 % (0.0-1.0); EOS # 0.6 10^3/uL (0.0-0.5); EOS % 5.2 % (0.0-3.0); HEMATOCRIT 36.6 % (42.0-52.0); HEMOGLOBIN 11.9 g/dl (13.5-17.5); LYMPH # 1.9 10^3/uL (1.5-5.0); LYMPH % 18.1 % (24.0-44.0); MEAN CORPUSCULAR HEMOGLOBIN 28.4 pg (27.0-33.0); MEAN CORPUSCULAR HGB CONC 32.5 g/dl (32.0-36.5); MEAN CORPUSCULAR VOLUME 87.4 fl (80.0-96.0); MONO % 9.1 % (2.0-8.0); NEUTROPHILS % 66.1 % (36.0-66.0); PLATELET COUNT, AUTOMATED 310 10^3/uL (150-450); RED BLOOD COUNT 4.19 10^6/uL (4.30-6.10); WHITE BLOOD COUNT 10.5 10^3/uL (4.0-10.0)
[2023-11-10 06:58] LABS: BLOOD UREA NITROGEN 8 MG/DL (9-23); CARBON DIOXIDE LEVEL 33 MMOL/L (20-31); CHLORIDE LEVEL 108 MMOL/L (98-107); CREATININE FOR GFR 0.96 MG/DL (0.70-1.30); GLOMERULAR FILTRATION RATE > 60.0 (>49); GLUCOSE, FASTING 96 MG/DL (74-106); POTASSIUM SERUM 3.7 MMOL/L (3.5-5.1); SODIUM LEVEL 143 MMOL/L (136-145)
[2023-11-10 12:37] VITALS: BP 140/84; TEMP 97.9; O2SAT 94
[2023-11-10 20:05] VITALS: BP 142/86; TEMP 97.9; O2SAT 95
[2023-11-11 04:00] VITALS: BP 146/86; TEMP 97.5; O2SAT 97
[2023-11-11 06:54] LABS: BASO # 0.1 10^3/uL (0.0-0.2); BASO % 1.2 % (0.0-1.0); EOS # 0.6 10^3/uL (0.0-0.5); EOS % 5.3 % (0.0-3.0); HEMATOCRIT 40.6 % (42.0-52.0); HEMOGLOBIN 13.3 g/dl (13.5-17.5); LYMPH # 1.9 10^3/uL (1.5-5.0); LYMPH % 18.4 % (24.0-44.0); MEAN CORPUSCULAR HEMOGLOBIN 28.4 pg (27.0-33.0); MEAN CORPUSCULAR HGB CONC 32.8 g/dl (32.0-36.5); MEAN CORPUSCULAR VOLUME 86.8 fl (80.0-96.0); MONO # 0.7 10^3/uL (0.0-0.8); MONO % 6.9 % (2.0-8.0); NEUTROPHILS % 67.9 % (36.0-66.0); PLATELET COUNT, AUTOMATED 369 10^3/uL (150-450); RED BLOOD COUNT 4.68 10^6/uL (4.30-6.10); WHITE BLOOD COUNT 10.4 10^3/uL (4.0-10.0)
[2023-11-11 07:11] LABS: BLOOD UREA NITROGEN 5 MG/DL (9-23); CARBON DIOXIDE LEVEL 31 MMOL/L (20-31); CHLORIDE LEVEL 104 MMOL/L (98-107); CREATININE FOR GFR 0.94 MG/DL (0.70-1.30); GLOMERULAR FILTRATION RATE > 60.0 (>49); GLUCOSE, FASTING 101 MG/DL (74-106); POTASSIUM SERUM 3.9 MMOL/L (3.5-5.1); SODIUM LEVEL 141 MMOL/L (136-145)
[2023-11-11 12:08] VITALS: BP 138/87; TEMP 97.7; O2SAT 94
[2023-11-11 19:46] VITALS: BP 129/82; TEMP 97.9; O2SAT 94
[2023-11-12 04:00] VITALS: BP 140/70; TEMP 97.5; O2SAT 96
[2023-11-12 06:26] LABS: BASO # 0.2 10^3/uL (0.0-0.2); BASO % 1.4 % (0.0-1.0); EOS # 0.6 10^3/uL (0.0-0.5); EOS % 5.4 % (0.0-3.0); HEMATOCRIT 37.9 % (42.0-52.0); HEMOGLOBIN 12.2 g/dl (13.5-17.5); LYMPH % 18.4 % (24.0-44.0); MEAN CORPUSCULAR HEMOGLOBIN 28.1 pg (27.0-33.0); MEAN CORPUSCULAR HGB CONC 32.2 g/dl (32.0-36.5); MEAN CORPUSCULAR VOLUME 87.3 fl (80.0-96.0); MONO # 0.9 10^3/uL (0.0-0.8); MONO % 8.6 % (2.0-8.0); NEUTROPHILS # 7.2 10^3/uL (1.5-8.5); NEUTROPHILS % 65.8 % (36.0-66.0); PLATELET COUNT, AUTOMATED 339 10^3/uL (150-450); RED BLOOD COUNT 4.34 10^6/uL (4.30-6.10); WHITE BLOOD COUNT 10.9 10^3/uL (4.0-10.0)
[2023-11-12 06:54] LABS: BLOOD UREA NITROGEN 7 MG/DL (9-23); CALCIUM LEVEL 8.6 MG/DL (8.3-10.6); CARBON DIOXIDE LEVEL 32 MMOL/L (20-31); CHLORIDE LEVEL 106 MMOL/L (98-107); GLOMERULAR FILTRATION RATE > 60.0 (>49); GLUCOSE, FASTING 85 MG/DL (74-106); SODIUM LEVEL 142 MMOL/L (136-145)
[2023-11-12 12:00] VITALS: BP 146/86; TEMP 98.1; O2SAT 94
[2023-11-12] MEDS ORDERED: BISACODYL 10MG SUPP PR PRN (13:00)
[2023-11-12] MEDS ORDERED: MOM 30ML SUSPENSION UDC PO PRN (13:00)
[2023-11-12] MEDS ORDERED: SENOKOT S TAB PO PRN (13:00)
[2023-11-12 20:01] VITALS: BP 150/86; TEMP 97.9; O2SAT 95
[2023-11-13 03:35] VITALS: BP 142/83; TEMP 97.9; O2SAT 94
[2023-11-13 07:07] LABS: BASO # 0.1 10^3/uL (0.0-0.2); EOS # 0.6 10^3/uL (0.0-0.5); EOS % 5.2 % (0.0-3.0); HEMATOCRIT 40.5 % (42.0-52.0); HEMOGLOBIN 13.6 g/dl (13.5-17.5); LYMPH # 2.1 10^3/uL (1.5-5.0); LYMPH % 17.8 % (24.0-44.0); MEAN CORPUSCULAR HEMOGLOBIN 29.1 pg (27.0-33.0); MEAN CORPUSCULAR HGB CONC 33.6 g/dl (32.0-36.5); MEAN CORPUSCULAR VOLUME 86.7 fl (80.0-96.0); MONO # 0.8 10^3/uL (0.0-0.8); MONO % 7.2 % (2.0-8.0); NEUTROPHILS # 7.9 10^3/uL (1.5-8.5); NEUTROPHILS % 68.5 % (36.0-66.0); PLATELET COUNT, AUTOMATED 372 10^3/uL (150-450); RED BLOOD COUNT 4.67 10^6/uL (4.30-6.10); WHITE BLOOD COUNT 11.6 10^3/uL (4.0-10.0)
[2023-11-13 07:36] LABS: BLOOD UREA NITROGEN 7 MG/DL (9-23); CALCIUM LEVEL 9.3 MG/DL (8.3-10.6); CARBON DIOXIDE LEVEL 28 MMOL/L (20-31); CHLORIDE LEVEL 107 MMOL/L (98-107); GLOMERULAR FILTRATION RATE > 60.0 (>49); GLUCOSE, FASTING 91 MG/DL (74-106); POTASSIUM SERUM 4.1 MMOL/L (3.5-5.1); SODIUM LEVEL 139 MMOL/L (136-145)
[2023-11-13] MEDS: BISACODYL 10MG SUPP PR SCH (11:57)
[2023-11-13] MEDS: MAGNESIUM CITRATE 300ML BTL PO ONE (11:57)
[2023-11-13 12:00] VITALS: BP 126/90; TEMP 97.5; O2SAT 96
[2023-11-13 20:04] VITALS: BP 152/89; TEMP 97.7; O2SAT 96
[2023-11-14 05:20] VITALS: BP 153/87; TEMP 97.9; O2SAT 97
[2023-11-14 07:33] LABS: BASO # 0.2 10^3/uL (0.0-0.2); BASO % 1.3 % (0.0-1.0); EOS # 0.5 10^3/uL (0.0-0.5); EOS % 4.4 % (0.0-3.0); HEMATOCRIT 41.6 % (42.0-52.0); HEMOGLOBIN 13.5 g/dl (13.5-17.5); LYMPH # 1.7 10^3/uL (1.5-5.0); LYMPH % 14.5 % (24.0-44.0); MEAN CORPUSCULAR HEMOGLOBIN 28.7 pg (27.0-33.0); MEAN CORPUSCULAR HGB CONC 32.5 g/dl (32.0-36.5); MEAN CORPUSCULAR VOLUME 88.5 fl (80.0-96.0); MONO # 0.9 10^3/uL (0.0-0.8); MONO % 7.5 % (2.0-8.0); NEUTROPHILS # 8.3 10^3/uL (1.5-8.5); NEUTROPHILS % 71.9 % (36.0-66.0); PLATELET COUNT, AUTOMATED 400 10^3/uL (150-450); WHITE BLOOD COUNT 11.6 10^3/uL (4.0-10.0)
[2023-11-14 07:56] LABS: BLOOD UREA NITROGEN 8 MG/DL (9-23); CALCIUM LEVEL 9.3 MG/DL (8.3-10.6); CARBON DIOXIDE LEVEL 31 MMOL/L (20-31); CHLORIDE LEVEL 108 MMOL/L (98-107); GLOMERULAR FILTRATION RATE > 60.0 (>49); GLUCOSE, FASTING 83 MG/DL (74-106); POTASSIUM SERUM 4.6 MMOL/L (3.5-5.1); SODIUM LEVEL 141 MMOL/L (136-145)
[2023-11-14] MEDS: MAGNESIUM CITRATE 300ML BTL PO ONE (08:55)
[2023-11-14 12:00] VITALS: BP 152/87; TEMP 98.1; O2SAT 96
[2023-11-14 20:29] VITALS: BP 131/89; TEMP 97.9; O2SAT 97
[2023-11-15 05:29] VITALS: BP 142/91; TEMP 97.9; O2SAT 94
[2023-11-15] MEDS: MAGNESIUM CITRATE 300ML BTL PO ONE (09:42)
[2023-11-15 13:01] VITALS: BP 149/89; TEMP 97.7; O2SAT 96
[2023-11-15 19:44] VITALS: BP 153/93; TEMP 97.9; O2SAT 96
[2023-11-16] VITALS (10 sets, daily range): BP systolic 140–182; BP diastolic 88–100; TEMP 97.5–98.8; O2SAT 91–95
[2023-11-16 06:21] LABS: HEMATOCRIT 40.4 % (42.0-52.0); HEMOGLOBIN 13.1 g/dl (13.5-17.5); MEAN CORPUSCULAR HEMOGLOBIN 28.5 pg (27.0-33.0); MEAN CORPUSCULAR HGB CONC 32.4 g/dl (32.0-36.5); MEAN CORPUSCULAR VOLUME 87.8 fl (80.0-96.0); PLATELET COUNT, AUTOMATED 371 10^3/uL (150-450); WHITE BLOOD COUNT 10.1 10^3/uL (4.0-10.0)
[2023-11-16 06:34] LABS: INR 1.03; PROTHROMBIN TIME 13.2 SECONDS (12.5-14.5)
[2023-11-16 06:50] LABS: ALBUMIN 3.3 G/DL (3.2-5.2); ALKALINE PHOSPHATASE 144 U/L (46-116); ALT/SGPT 11 U/L (7.0-40); AST/SGOT < 8 U/L (<34); BILIRUBIN,TOTAL 0.6 MG/DL (0.3-1.2); BLOOD UREA NITROGEN 11 MG/DL (9-23); CALCIUM LEVEL 9.2 MG/DL (8.3-10.6); CARBON DIOXIDE LEVEL 30 MMOL/L (20-31); CHLORIDE LEVEL 108 MMOL/L (98-107); CREATININE FOR GFR 0.96 MG/DL (0.70-1.30); GLOMERULAR FILTRATION RATE > 60.0 (>49); GLUCOSE, FASTING 81 MG/DL (74-106); POTASSIUM SERUM 4.1 MMOL/L (3.5-5.1); SODIUM LEVEL 142 MMOL/L (136-145); TOTAL PROTEIN 6.4 G/DL (5.7-8.2)
[2023-11-16] MEDS ORDERED: dexmedeTOMIDine (4MCG/ML)200MCG/50ML BTL (PRECEDEX) As Ordered ONE (08:11)
[2023-11-16] MEDS ORDERED: ONDANSETRON 4MG 2ML VIAL As Ordered ONE (08:11)
[2023-11-16] MEDS ORDERED: ROCURONIUM BROMIDE 50MG/5ML VIAL As Ordered ONE (08:11)
[2023-11-16] MEDS ORDERED: fentaNYL 100 MCG/2 ML INJECTION As Ordered ONE (08:16)
[2023-11-16] MEDS ORDERED: MIDAZOLAM INJ 2MG/2ML VIAL As Ordered ONE (08:17)
[2023-11-16] MEDS: ceFAZolin 2 GM/D5W 50 ML IV BAG As Ordered ONE (09:54)
[2023-11-16] MEDS: metroNIDAZOLE/NACL 500MG(5MG/ML) 100ML BAG As Ordered ONE (09:54)
[2023-11-16] MEDS ORDERED: HYDROmorphone HCL 2MG/ML 1ML VIAL As Ordered ONE (10:05)
[2023-11-16] MEDS ORDERED: ePHEDrine SULFATE 25 MG/5 ML(5MG/ML) SYRINGE As Ordered ONE (10:15)
[2023-11-16] MEDS ORDERED: SUGAMMADEX SODIUM 500 MG/5 ML VIAL (BRIDION) As Ordered ONE (11:06)
[2023-11-16] MEDS ORDERED: VASOPRESSIN INJ 20UNITS/ML 1ML VIAL As Ordered ONE (11:52)
[2023-11-16] MEDS ORDERED: NALOXONE INJ 0.4MG/1ML VIAL As Ordered ONE (12:18)
[2023-11-16] MEDS: LR 1,000 ML IV SCH (12:20)
[2023-11-16] MEDS ORDERED: fentaNYL 100 MCG/2 ML INJECTION IV PRN (12:20)
[2023-11-16] MEDS ORDERED: HYDROMORPHONE HCL 0.5 MG/ 0.5 ML SYRINGE IV PRN (12:20)
[2023-11-16] MEDS ORDERED: ONDANSETRON 4MG 2ML VIAL IV PRN (12:20)
[2023-11-16] MEDS ORDERED: oxyCODONE 5MG TAB PO PRN (12:20)
[2023-11-16] MEDS ORDERED: NS 1,000 ML IV SCH (13:00)
[2023-11-16] MEDS ORDERED: HYDROMORPHONE HCL 0.5 MG/ 0.5 ML SYRINGE IV ONE (14:35)
[2023-11-16] MEDS: FUROSEMIDE 40MG/4ML VIAL IV ONE (14:48)
[2023-11-16] MEDS: NITROGLYCERIN 2% OINT 1 GM *U/D* PKT TOP ONE (14:49)
[2023-11-16] MEDS: PIPERACILLIN/TAZOBACTAM SOD 3.375 GM in D5W MINI-BAG PLUS 50 ML IV SCH (15:01)
[2023-11-16 16:18] LABS: ABG BASE EXCESS -0.8 (-2.0-2.0); ABG HCO3 23.9 MMOL/L (22.0-26.0); ABG O2 SATURATION 93.9 % (95.0-99.0); ABG PARTIAL PRESSURE O2 67.9 mmHg (75.0-100.0); ABG STANDARD HCO3 23.7 MMOL/L. (22.0-26.0); ABG TOTAL CO2 25.2 MMOL/L (23.0-31.0); ABG pH (ARTERIAL) 7.395 UNITS (7.350-7.450)
[2023-11-16] MEDS: KETOROLAC 30 MG/ML 1ML VIAL IV PRN (19:08)
[2023-11-16] MEDS: NORCO, ANEXSIA 5/325MG TABLET (HYDROcodone/ACETAMINOPHEN) PO PRN (23:55)
[2023-11-17 04:00] VITALS: BP 127/74; TEMP 97.7; O2SAT 92
[2023-11-17] MEDS: MORPHINE 2 MG/ML 1ML VIAL IV PRN (04:39)
[2023-11-17 08:00] VITALS: BP 124/73; TEMP 98.6; O2SAT 93
[2023-11-17] MEDS: ENOXAPARIN 40MG/0.4ML SYRINGE (J1650 PER 10MG) SC SCH (08:17)
[2023-11-17] MEDS: NORCO, ANEXSIA 5/325MG TABLET (HYDROcodone/ACETAMINOPHEN) PO PRN (08:18)
[2023-11-17 12:00] VITALS: BP 123/73; TEMP 98.1; O2SAT 92
[2023-11-17] MEDS: LOSARTAN 50MG TABLET PO SCH (16:17)
[2023-11-17 19:49] VITALS: BP 133/64; TEMP 98.6; O2SAT 95
[2023-11-17] MEDS: TAMSULOSIN 0.4 MG CAP PO SCH (20:21)
[2023-11-18 04:00] VITALS: BP 112/68; TEMP 97.7; O2SAT 96
[2023-11-18 12:00] VITALS: BP 104/67; TEMP 98.1; O2SAT 93
[2023-11-18 19:32] VITALS: BP 134/73; TEMP 96.9
[2023-11-19 04:00] VITALS: BP 104/52; TEMP 97.7; O2SAT 92
[2023-11-19 06:20] LABS: BASO # 0.1 10^3/uL (0.0-0.2); BASO % 1.3 % (0.0-1.0); EOS # 0.5 10^3/uL (0.0-0.5); EOS % 5.5 % (0.0-3.0); HEMOGLOBIN 10.7 g/dl (13.5-17.5); LYMPH # 1.8 10^3/uL (1.5-5.0); LYMPH % 18.6 % (24.0-44.0); MEAN CORPUSCULAR HEMOGLOBIN 28.7 pg (27.0-33.0); MEAN CORPUSCULAR HGB CONC 32.4 g/dl (32.0-36.5); MEAN CORPUSCULAR VOLUME 88.5 fl (80.0-96.0); MONO # 0.7 10^3/uL (0.0-0.8); NEUTROPHILS # 6.6 10^3/uL (1.5-8.5); NEUTROPHILS % 67.3 % (36.0-66.0); PLATELET COUNT, AUTOMATED 341 10^3/uL (150-450); RED BLOOD COUNT 3.73 10^6/uL (4.30-6.10); WHITE BLOOD COUNT 9.7 10^3/uL (4.0-10.0)
[2023-11-19 06:47] LABS: BLOOD UREA NITROGEN 12 MG/DL (9-23); CALCIUM LEVEL 11.7 MG/DL (8.3-10.6); CARBON DIOXIDE LEVEL 32 MMOL/L (20-31); CHLORIDE LEVEL 106 MMOL/L (98-107); CREATININE FOR GFR 0.95 MG/DL (0.70-1.30); GLOMERULAR FILTRATION RATE > 60.0 (>49); GLUCOSE, FASTING 98 MG/DL (74-106); SODIUM LEVEL 142 MMOL/L (136-145)
[2023-11-19] MEDS: OMEPRAZOLE 20MG CAP PO SCH (09:27)
[2023-11-19 12:00] VITALS: BP 146/75; TEMP 97.9; O2SAT 97
[2023-11-19 20:39] VITALS: BP 144/90; TEMP 97.9; O2SAT 92
[2023-11-19] MEDS ORDERED: OLANZapine INTRAMUSCULAR 10MG VIAL IM PRN (22:45)
[2023-11-19] MEDS ORDERED: NICOTINE 21MG/24HR 1 EA TRANSDERMAL TD PRN (22:50)
[2023-11-20 04:00] VITALS: BP 175/98; TEMP 97.9; O2SAT 93
[2023-11-20 06:56] LABS: ALBUMIN 2.8 G/DL (3.2-5.2); BLOOD UREA NITROGEN 16 MG/DL (9-23); CALCIUM LEVEL 9.3 MG/DL (8.3-10.6); CARBON DIOXIDE LEVEL 31 MMOL/L (20-31); CHLORIDE LEVEL 107 MMOL/L (98-107); CREATININE FOR GFR 0.97 MG/DL (0.70-1.30); GLOMERULAR FILTRATION RATE > 60.0 (>49); GLUCOSE, FASTING 87 MG/DL (74-106); POTASSIUM SERUM 4.2 MMOL/L (3.5-5.1); SODIUM LEVEL 143 MMOL/L (136-145)
[2023-11-20] MEDS: SENOKOT S TAB PO SCH (08:53)
[2023-11-20 11:24] VITALS: BP 144/86
[2023-11-20 12:00] VITALS: TEMP 97.7; O2SAT 94
[2023-11-20 20:35] VITALS: BP 150/98; TEMP 98.4; O2SAT 94
[2023-11-21 05:22] VITALS: BP 134/87; TEMP 97.7; O2SAT 95
[2023-11-21 06:58] LABS: HEMATOCRIT 32.6 % (42.0-52.0); HEMOGLOBIN 10.5 g/dl (13.5-17.5); MEAN CORPUSCULAR HEMOGLOBIN 28.8 pg (27.0-33.0); MEAN CORPUSCULAR HGB CONC 32.2 g/dl (32.0-36.5); MEAN CORPUSCULAR VOLUME 89.6 fl (80.0-96.0); PLATELET COUNT, AUTOMATED 381 10^3/uL (150-450); RED BLOOD COUNT 3.64 10^6/uL (4.30-6.10); WHITE BLOOD COUNT 10.5 10^3/uL (4.0-10.0)
[2023-11-21 07:30] LABS: ALBUMIN 2.8 G/DL (3.2-5.2); BLOOD UREA NITROGEN 15 MG/DL (9-23); CARBON DIOXIDE LEVEL 30 MMOL/L (20-31); CHLORIDE LEVEL 108 MMOL/L (98-107); CREATININE FOR GFR 0.92 MG/DL (0.70-1.30); GLOMERULAR FILTRATION RATE > 60.0 (>49); GLUCOSE, FASTING 91 MG/DL (74-106); PHOSPHORUS LEVEL 3.5 MG/DL (2.4-5.1); POTASSIUM SERUM 4.2 MMOL/L (3.5-5.1); SODIUM LEVEL 142 MMOL/L (136-145)
[2023-11-21 08:52] VITALS: BP 142/88
[2023-11-21] MEDS: MAGNESIUM CITRATE 300ML BTL PO ONE (11:22)
[2023-11-21 12:00] VITALS: BP 120/72; TEMP 97.9; O2SAT 92
[2023-11-21] MEDS: SERTRALINE HCL 50 MG TAB PO SCH (12:20)
[2023-11-21] MEDS: CLOPIDOGREL 75 MG TAB PO SCH (12:20)
[2023-11-21] MEDS: oxyBUTYnin *DITROPAN XL* 5 MG TABCR PO SCH (12:21)
[2023-11-21] MEDS ORDERED: ATORVASTATIN 20 MG TAB PO SCH (21:00)
[2023-11-22] MEDS ORDERED: SERT50TA29 PO (16:51)
[2023-11-22] MEDS ORDERED: FLOM0.4C39 PO (16:51)
[2023-11-22] MEDS ORDERED: ASPI81CH33 PO (16:51)
[2023-11-22] MEDS ORDERED: AMLO1TAB25 PO (16:51)
[2023-11-22] MEDS ORDERED: OXYB15TA14 PO (16:51)
[2023-11-22] MEDS ORDERED: ATOR80TA59 PO (16:51)
[2023-11-22] MEDS ORDERED: CLOP75TA99 PO (16:51)
[2023-11-22] MEDS ORDERED: LOSA50TA28 PO (16:51)
== END 2023-11-21 19:35 | disposition home or self-care (01) | DRG 221 ==
LOC: EDBD 14:17 → M ED 16:17 → M ED INP 23:09 → M MS5PR 11-07 10:15
PROVIDERS: ADMIT Preventive Medicine Undersea and Hyperbaric Medicine; ATTEND Internal Medicine
PROC: 0DBN8ZX Excision of Sigmoid Colon, Via Natural or Artificial Opening Endoscopic, Diagnostic (ICD-10-PCS; principal; 2023-11-08 13:00)
PROC: 0DBN4ZZ Excision of Sigmoid Colon, Percutaneous Endoscopic Approach (ICD-10-PCS; 2023-11-16)
PROC: 8E0W4CZ Robotic Assisted Procedure of Trunk Region, Percutaneous Endoscopic Approach (ICD-10-PCS; 2023-11-16)
DX: C18.7 Malignant neoplasm of sigmoid colon (principal); C77.2 Secondary and unspecified malignant neoplasm of intra-abdominal lymph nodes; I10 Essential (primary) hypertension; F32.A Depression, unspecified; N40.0 Benign prostatic hyperplasia without lower urinary tract symptoms; N32.81 Overactive bladder; E78.5 Hyperlipidemia, unspecified; D62 Acute posthemorrhagic anemia; K92.2 Gastrointestinal hemorrhage, unspecified; R93.3 Abnormal findings on diagnostic imaging of other parts of digestive tract; F17.200 Nicotine dependence, unspecified, uncomplicated; Z79.02 Long term (current) use of antithrombotics/antiplatelets; Z79.82 Long term (current) use of aspirin; Z86.73 Personal history of transient ischemic attack (TIA), and cerebral infarction without residual deficits; Z79.899 Other long term (current) drug therapy

== ENCOUNTER 2023-12-19 12:14 | Emergency (ER) | payer MEDICAID ==
[~2023-12-19] VITALS: Ht 175.3 cm; Wt 79.0 kg
[~2023-12-19 12:14] MED LIST changes: +ACET-907 PO; +ASPI81CH33 PO; +ATOR80TA59 PO; +CLOP75TA99 PO; +LOSA50TA28 PO; +OXYB15TA14 PO
[2023-12-19 13:04] VITALS: BP 179/103; TEMP 98.5; O2SAT 96
== END 2023-12-19 13:04 | disposition left against medical advice (07) ==
LOC: M ED 12:14
DX: Z53.21 Procedure and treatment not carried out due to patient leaving prior to being seen by health care provider (principal)

== ENCOUNTER → 2024-02-11 | Outpatient (CLI) | payer MEDICAID ==
[~2024-02-11] VITALS: Ht 180.3 cm; Wt 68.0 kg
[~2024-02-11] MED LIST changes: +LIDOCAINE 1% MDV 20ML VIAL As Ordered ONE; +MIDAZOLAM INJ 2MG/2ML VIAL As Ordered ONE; +ceFAZolin 2 GM/D5W 50 ML IV BAG As Ordered ONE; +fentaNYL 100 MCG/2 ML INJECTION As Ordered ONE
[2024-02-11 08:49] VITALS: TEMP 98.3
[2024-02-11] MEDS: ceFAZolin SOD 2 GM in IV 1 EA IV ONE (09:17)
[2024-02-11] MEDS: NS (Normal Saline) 0.9% 1,000 ML IV SCH (09:17)
[2024-02-11 10:25] VITALS: BP 119/76; O2SAT 95
== END ==
LOC: M IRPRO 08:29
PROVIDERS: ATTEND Internal Medicine Medical Oncology
DX: C18.9 Malignant neoplasm of colon, unspecified (principal)
CPT/HCPCS: 36561; 99152; J0690; J1642; J2250; J3010

== ENCOUNTER → 2024-04-23 | Outpatient (CLI) | payer MEDICAID ==
[~2024-04-23] MED LIST changes: +LIDO30CR18 TOP; -MIDAZOLAM INJ 2MG/2ML VIAL As Ordered ONE; -ceFAZolin 2 GM/D5W 50 ML IV BAG As Ordered ONE; -fentaNYL 100 MCG/2 ML INJECTION As Ordered ONE
[2024-04-23 09:00] VITALS: TEMP 98.8
[2024-04-23 10:25] VITALS: BP 161/96; O2SAT 99
== END ==
LOC: M IRPRO 08:47
PROVIDERS: ATTEND Internal Medicine Medical Oncology
DX: C18.9 Malignant neoplasm of colon, unspecified (principal); Z79.899 Other long term (current) drug therapy

== ENCOUNTER → 2024-06-19 | Outpatient (CLI) | payer MEDICAID ==
[~2024-06-19] MED LIST changes: -FLOM0.4C39 PO; +ISOVUE-370 76% 100ML VIAL ONE; -LIDOCAINE 1% MDV 20ML VIAL As Ordered ONE; +TAMS-18 PO
== END ==
LOC: M PLAIMG 09:57
PROVIDERS: ATTEND Internal Medicine Medical Oncology
DX: C18.9 Malignant neoplasm of colon, unspecified (principal)

== ENCOUNTER 2024-07-09 09:26 | Emergency (ER) | payer MEDICAID ==
[~2024-07-09] VITALS: Ht 175.3 cm; Wt 72.7 kg
[~2024-07-09 09:26] MED LIST changes: -ISOVUE-370 76% 100ML VIAL ONE
[2024-07-09 10:17] LABS: BASO # 0.1 10^3/uL (0.0-0.2); BASO % 1.6 % (0.0-1.0); EOS # 0.1 10^3/uL (0.0-0.5); EOS % 2.4 % (0.0-3.0); HEMATOCRIT 36.9 % (42.0-52.0); LYMPH # 1.5 10^3/uL (1.5-5.0); LYMPH % 34.3 % (24.0-44.0); MEAN CORPUSCULAR HEMOGLOBIN 29.7 pg (27.0-33.0); MEAN CORPUSCULAR HGB CONC 32.5 g/dl (32.0-36.5); MEAN CORPUSCULAR VOLUME 91.3 fl (80.0-96.0); MONO # 0.8 10^3/uL (0.0-0.8); MONO % 16.9 % (2.0-8.0); NEUTROPHILS % 44.4 % (36.0-66.0); PLATELET COUNT, AUTOMATED 102 10^3/uL (150-450); RED BLOOD COUNT 4.04 10^6/uL (4.30-6.10); WHITE BLOOD COUNT 4.5 10^3/uL (4.0-10.0)
[2024-07-09 10:32] LABS: PARTIAL THROMBOPLASTIN TIME 31.3 SECONDS (24.8-34.2); PROTHROMBIN TIME 13.5 SECONDS (12.5-14.5)
[2024-07-09 11:11] VITALS: O2SAT 95
[2024-07-09 11:15] VITALS: BP 118/79
[2024-07-09] MEDS ORDERED: LOSA50TA28 PO (11:21)
[2024-07-09] MEDS ORDERED: ATOR80TA59 PO (11:21)
[2024-07-09] MEDS ORDERED: CLOP75TA99 PO (11:21)
[2024-07-09] MEDS ORDERED: AMLO1TAB25 PO (11:21)
[2024-07-09 11:33] VITALS: TEMP 98.1
== END 2024-07-09 11:40 | disposition home or self-care (01) ==
LOC: M ED 09:26
DX: G45.3 Amaurosis fugax (principal); Z91.148 Patient's other noncompliance with medication regimen for other reason; I10 Essential (primary) hypertension; E78.5 Hyperlipidemia, unspecified; F17.210 Nicotine dependence, cigarettes, uncomplicated; Z79.1 Long term (current) use of non-steroidal anti-inflammatories (NSAID); Z79.899 Other long term (current) drug therapy

== ENCOUNTER → 2024-09-01 | Outpatient (CLI) | payer MEDICAID ==
[~2024-09-01] MED LIST changes: +ACET-683 PO; +ACET32TAB PO; +ASCO50TA PO; +ASPI81TAEC PO; +COLA100C5 PO; +FERR1TAB8 PO; +LIDO5TD TD; +OXYC-517 PO; +PANT40TA29 PO; +SENN18TA PO
== END ==
LOC: M SOG 11:05
PROVIDERS: ATTEND Orthopaedic Surgery
DX: Z47.89 Encounter for other orthopedic aftercare (principal); S72.142D Displaced intertrochanteric fracture of left femur, subsequent encounter for closed fracture with routine healing

== ENCOUNTER → 2024-09-12 | Outpatient (REF) | payer MEDICAID ==
[2024-09-12 17:33] LABS: ESTIMATED AVERAGE GLUCOSE 105.0 MG/DL (60-110)
[2024-09-12 17:34] LABS: ALT/SGPT 13 U/L (7.0-40); AST/SGOT 19 U/L (<34); CALCIUM LEVEL 8.8 MG/DL (8.3-10.6); CARBON DIOXIDE LEVEL 27 MMOL/L (20-31); CHLORIDE LEVEL 104 MMOL/L (98-107); CREATININE FOR GFR 0.85 MG/DL (0.70-1.30); GLOMERULAR FILTRATION RATE > 90.0 (>49); IRON (FE) 39 UG/DL (65-175); PERCENT SATURATION 12.3 % (19.7-50.0); POTASSIUM SERUM 3.9 MMOL/L (3.5-5.1); SODIUM LEVEL 144 MMOL/L (136-145)
[2024-09-12 17:57] LABS: BASO # 0.2 10^3/uL (0.0-0.2); BASO % 1.7 % (0.0-1.0); EOS # 0.6 10^3/uL (0.0-0.5); EOS % 6.0 % (0.0-3.0); LYMPH # 1.7 10^3/uL (1.5-5.0); LYMPH % 17.3 % (24.0-44.0); MONO # 1.0 10^3/uL (0.0-0.8); MONO % 10.7 % (2.0-8.0); NEUTROPHILS # 6.1 10^3/uL (1.5-8.5); NEUTROPHILS % 63.9 % (36.0-66.0); PLATELET COUNT, AUTOMATED 242 10^3/uL (150-450)
== END ==
LOC: M LAB REF 16:25
PROVIDERS: ATTEND Nurse Practitioner Family
DX: D64.9 Anemia, unspecified (principal); R42 Dizziness and giddiness

== ENCOUNTER → 2024-09-18 | Outpatient (CLI) | payer MEDICAID ==
[~2024-09-18] MED LIST changes: +ISOVUE-370 76% 100 ML VIAL As Ordered ONE
== END ==
LOC: M RAD 12:32
DX: C18.9 Malignant neoplasm of colon, unspecified (principal); R91.8 Other nonspecific abnormal finding of lung field; J98.4 Other disorders of lung; J98.11 Atelectasis
CPT/HCPCS: 71260; 74177; Q9967

== ENCOUNTER 2024-10-10 12:20 | Emergency (ER) | payer MEDICAID ==
[~2024-10-10] VITALS: Ht 175.3 cm; Wt 63.6 kg
[~2024-10-10 12:20] MED LIST changes: -ISOVUE-370 76% 100 ML VIAL As Ordered ONE
[2024-10-10 16:04] LABS: KETONE, URINE AUTO RFX TRACE mg/dL (NEGATIVE); LEUKOCYTE ESTERASE UR AUTO RFX NEGATIVE (NEGATIVE); MUCUS, URINE RFX MODERATE (NEGATIVE); NITRITE, URINE AUTO RFX NEGATIVE (NEGATIVE); RBC, URINE AUTO RFX 0 /HPF (0-3); SQUAM EPITHELIAL CELL UR AURFX 0 /HPF (0-6); WBC, URINE AUTO RFX 1 /HPF (0-3)
[2024-10-10 16:50] VITALS: O2SAT 96
[2024-10-10 17:18] VITALS: BP 169/80; TEMP 97.3
== END 2024-10-10 17:30 | disposition home or self-care (01) ==
LOC: EDBD 12:20 → M ED 14:06
DX: I10 Essential (primary) hypertension (principal); Z86.73 Personal history of transient ischemic attack (TIA), and cerebral infarction without residual deficits

== ENCOUNTER 2024-10-19 05:10 | Emergency (ER) | payer MEDICAID ==
[~2024-10-19] VITALS: Ht 175.3 cm; Wt 63.6 kg
[2024-10-19] MEDS: NS (Normal Saline) 0.9% 1,000 ML IV ONE ×2 (05:35→06:01)
[2024-10-19 05:37] LABS: BASO # 0.1 10^3/uL (0.0-0.2); BASO % 1.1 % (0.0-1.0); EOS # 0.3 10^3/uL (0.0-0.5); EOS % 3.3 % (0.0-3.0); LYMPH # 1.7 10^3/uL (1.5-5.0); LYMPH % 16.3 % (24.0-44.0); MONO # 0.5 10^3/uL (0.0-0.8); MONO % 4.8 % (2.0-8.0); NEUTROPHILS # 7.5 10^3/uL (1.5-8.5); NEUTROPHILS % 74.0 % (36.0-66.0); PLATELET COUNT, AUTOMATED 245 10^3/uL (150-450)
[2024-10-19 05:52] LABS: INR 0.99
[2024-10-19 06:02] LABS: CALCIUM LEVEL 9.1 MG/DL (8.3-10.6); CARBON DIOXIDE LEVEL 26 MMOL/L (20-31); CHLORIDE LEVEL 108 MMOL/L (98-107); CREATININE FOR GFR 0.81 MG/DL (0.70-1.30); GLOMERULAR FILTRATION RATE > 90.0 (>49); POTASSIUM SERUM 3.9 MMOL/L (3.5-5.1); SODIUM LEVEL 146 MMOL/L (136-145)
[2024-10-19] MEDS ORDERED: LIDOCAINE 1% SDV 30 ML VIAL SC SCH (06:45)
[2024-10-19] MEDS: LIDOCAINE 1% MDV 20 ML VIAL INFIL ONE (06:55)
[2024-10-19 07:30] VITALS: O2SAT 99
[2024-10-19 07:35] VITALS: BP 148/84
[2024-10-19 08:26] VITALS: TEMP 94.7
[2024-10-19] MEDS ORDERED: ACET-907 PO (08:52)
== END 2024-10-19 09:08 | disposition home or self-care (01) ==
LOC: M ED 05:10
DX: S01.112A Laceration without foreign body of left eyelid and periocular area, initial encounter (principal); Y92.9 Unspecified place or not applicable; Y93.9 Activity, unspecified; Y99.9 Unspecified external cause status; W01.0XXA Fall on same level from slipping, tripping and stumbling without subsequent striking against object, initial encounter; K02.9 Dental caries, unspecified; M50.30 Other cervical disc degeneration, unspecified cervical region; Z79.1 Long term (current) use of non-steroidal anti-inflammatories (NSAID); Z79.899 Other long term (current) drug therapy

== ENCOUNTER → 2024-11-11 | Outpatient (CLI) | payer MEDICAID | LOC: M SOG 07:16 | PROVIDERS: ATTEND Orthopaedic Surgery | DX: S72.142D Displaced intertrochanteric fracture of left femur, subsequent encounter for closed fracture with routine healing (principal) ==

== ENCOUNTER → 2024-12-01 | Outpatient (CLI) | payer MEDICAID ==
[2024-12-01 11:56] LABS: BASO # 0.1 10^3/uL (0.0-0.2); BASO % 1.0 % (0.0-1.0); EOS # 0.2 10^3/uL (0.0-0.5); EOS % 1.8 % (0.0-3.0); LYMPH # 1.9 10^3/uL (1.5-5.0); LYMPH % 20.3 % (24.0-44.0); MONO # 0.4 10^3/uL (0.0-0.8); MONO % 4.4 % (2.0-8.0); NEUTROPHILS # 6.9 10^3/uL (1.5-8.5); NEUTROPHILS % 72.3 % (36.0-66.0); PLATELET COUNT, AUTOMATED 296 10^3/uL (150-450)
[2024-12-01 12:31] LABS: ALT/SGPT 16 U/L (7.0-40); AST/SGOT 22 U/L (<34); CALCIUM LEVEL 9.4 MG/DL (8.3-10.6); CARBON DIOXIDE LEVEL 29 MMOL/L (20-31); CHLORIDE LEVEL 106 MMOL/L (98-107); CREATININE FOR GFR 0.81 MG/DL (0.70-1.30); GLOMERULAR FILTRATION RATE > 90.0 (>49); MAGNESIUM LEVEL 1.9 MG/DL (1.8-2.4); POTASSIUM SERUM 4.0 MMOL/L (3.5-5.1); SODIUM LEVEL 145 MMOL/L (136-145)
== END ==
LOC: M WUC 10:38
PROVIDERS: ATTEND Internal Medicine Hematology & Oncology
DX: C18.9 Malignant neoplasm of colon, unspecified (principal)

== ENCOUNTER → 2024-12-04 | Outpatient (CLI) | payer MEDICAID ==
[~2024-12-04] MED LIST changes: +ISOVUE-370 76% 100 ML VIAL As Ordered ONE
== END ==
LOC: M RAD 08:53
DX: C18.9 Malignant neoplasm of colon, unspecified (principal)
CPT/HCPCS: 71260; 74177; Q9967

== ENCOUNTER → 2024-12-15 | Outpatient (CLI) | payer MEDICAID ==
[~2024-12-15] MED LIST changes: -ISOVUE-370 76% 100 ML VIAL As Ordered ONE
== END ==
LOC: M PLARAD 13:59
DX: C18.8 Malignant neoplasm of overlapping sites of colon (principal)
CPT/HCPCS: 78815; A9552

== ENCOUNTER → 2025-02-17 | Outpatient (CLI) | payer MEDICAID ==
[~2025-02-17] MED LIST changes: +LIDOCAINE 1% MDV 20 ML VIAL SC SCH; +MIDAZOLAM INJ 2 MG/2 ML VIAL IV PRN; +NS (Normal Saline) 0.9% 1,000 ML IV SCH
[2025-02-17 12:58] VITALS: TEMP 98.6
[2025-02-17 14:15] VITALS: BP 161/102; O2SAT 99
== END ==
LOC: M IRPRO 12:05
PROVIDERS: ATTEND Internal Medicine Medical Oncology
DX: C77.2 Secondary and unspecified malignant neoplasm of intra-abdominal lymph nodes (principal); C18.9 Malignant neoplasm of colon, unspecified